=== PATIENT | male | born 1990 | race Caucasian/White ===

== ENCOUNTER 2018-12-04 16:39 | Emergency (ER) | payer OTHER ==
[~2018-12-04] VITALS: Ht 190.5 cm; Wt 113.4 kg
== END 2018-12-04 18:46 | disposition home or self-care (01) ==
LOC: ER 16:39
DX: S62.306A Unspecified fracture of fifth metacarpal bone, right hand, initial encounter for closed fracture (principal); Y04.0XXA Assault by unarmed brawl or fight, initial encounter; Y93.72 Activity, wrestling
CPT/HCPCS: 29125; 73130; 99283-25

== ENCOUNTER 2019-07-25 14:29 | Emergency (ER) | payer OTHER ==
[~2019-07-25] VITALS: Ht 190.5 cm; Wt 101.2 kg
[2019-07-25 16:42] LABS: BASOPHILS ABSOLUTE AUTO 0.03 K/mm3 (0.00-0.23); BASOPHILS PERCENT AUTO 0 % (0-2); EOSINOPHILS ABSOLUTE AUTO 0.09 K/mm3 (0.00-0.68); EOSINOPHILS PERCENT AUTO 1 % (0-6); Hematocrit 43.9 % (37.0-53.0); IMMATURE GRAN ABSOLUTE AUTO 0.01 K/mm3 (0.00-0.10); IMMATURE GRAN PERCENT AUTO 0 % (0-1); LYMPHOCYTES ABSOLUTE AUTO 2.06 K/mm3 (0.84-5.20); LYMPHOCYTES PERCENT AUTO 27 % (21-46); MONOCYTES ABSOLUTE AUTO 0.72 K/mm3 (0.16-1.47); MONOCYTES PERCENT AUTO 10 % (4-13); Mean Corpuscular HGB 30.7 pg (26.0-34.0); Mean Corpuscular HGB Conc 34.2 g/dL (31.5-36.5); Mean Corpuscular Volume 90 fL (80-100); NEUTROPHILS ABSOLUTE AUTO 4.63 K/mm3 (1.96-9.15); NEUTROPHILS PERCENT AUTO 62 % (41-73); Platelet Count 183 K/mm3 (150-400); RDW Coefficient Variation 11.7 % (11.7-14.2); RDW Standard Deviation 38.1 fL (35.1-46.3); Red Blood Cell Count 4.89 M/mm3 (4.30-5.90); White Blood Cell Count 7.54 K/mm3 (4.00-11.30)
[2019-07-25 16:59] LABS: Anion Gap 6 mmol/L (6-16); Blood Urea Nitrogen 8 mg/dL (8-24); Bun/Creatinine Ratio 9.7 (12.0-20.0); CO2, Blood 24 mmol/L (21-32); Calcium, Blood 8.7 mg/dL (8.5-10.1); Chloride, Blood 108 mmol/L (98-108); Creatinine, Blood 0.82 mg/dL (0.60-1.20); Glomerular Filtration Rate >60 (60-); Glucose, Blood 86 mg/dL (70-99); Potassium, Blood 4.1 mmol/L (3.5-5.5); Sodium, Blood 138 mmol/L (136-145)
[2019-07-25] MEDS ORDERED: CYCL10 PO (17:44)
[2019-07-25] MEDS ORDERED: IBUP600 PO (17:44)
== END 2019-07-25 18:04 | disposition home or self-care (01) ==
LOC: ER 14:29
PROVIDERS: Physician Assistant
DX: M54.2 Cervicalgia (principal); F17.200 Nicotine dependence, unspecified, uncomplicated
CPT/HCPCS: 36415; 72070; 72128; 80048; 85025; 85651; 86141; 99284-25

== ENCOUNTER 2019-11-05 13:12 | Emergency (ER) | payer OTHER ==
[~2019-11-05] VITALS: Ht 190.5 cm; Wt 99.8 kg
[~2019-11-05 13:12] MED LIST: CYCL10 PO; IBUP600 PO
[2019-11-05] MEDS ORDERED: Cleocin HCl300 MG PO (14:20)
[2019-11-05] MEDS ORDERED: IBUP800 PO (14:20)
== END 2019-11-05 15:12 | disposition home or self-care (01) ==
LOC: ER 13:12
DX: K04.7 Periapical abscess without sinus (principal)
CPT/HCPCS: 99282

== ENCOUNTER 2020-02-15 17:10 | Emergency (ER) | payer OTHER ==
[~2020-02-15] VITALS: Ht 190.5 cm; Wt 95.2 kg
[~2020-02-15 17:10] MED LIST changes: +Cleocin HCl300 MG PO; +IBUP800 PO
[2020-02-26] MEDS ORDERED: OMEP20ER PO (06:51)
== END 2020-02-15 18:59 | disposition home or self-care (01) ==
LOC: ER 17:10
DX: S92.412A Displaced fracture of proximal phalanx of left great toe, initial encounter for closed fracture (principal); X58.XXXA Exposure to other specified factors, initial encounter
CPT/HCPCS: 73630; 99283-25

== ENCOUNTER 2020-04-02 12:09 | Emergency (ER) | payer OTHER ==
[~2020-04-02] VITALS: Ht 190.5 cm; Wt 95.2 kg
[~2020-04-02 12:09] MED LIST changes: +OMEP20ER PO
[2020-04-02] MEDS ORDERED: IBU800 MG PO (12:44)
[2020-04-02] MEDS ORDERED: AMOCLA875 PO (12:44)
== END 2020-04-02 13:10 | disposition home or self-care (01) ==
LOC: ER 12:09
DX: K02.9 Dental caries, unspecified (principal); F17.210 Nicotine dependence, cigarettes, uncomplicated; Z87.19 Personal history of other diseases of the digestive system
CPT/HCPCS: 99282

== ENCOUNTER 2020-08-28 12:49 | Emergency (ER) | payer OTHER ==
[~2020-08-28] VITALS: Ht 182.9 cm; Wt 108.9 kg
[~2020-08-28 12:49] MED LIST changes: +AMOCLA875 PO; +IBU800 MG PO
[2020-08-28] MEDS ORDERED: Robaxin-750750 MG PO (13:18)
[2020-08-28] MEDS ORDERED: IBUP800 PO (13:18)
== END 2020-08-28 13:20 | disposition home or self-care (01) ==
LOC: ER 12:49
DX: M54.5 Low back pain (principal); F17.210 Nicotine dependence, cigarettes, uncomplicated
CPT/HCPCS: 99283

== ENCOUNTER 2021-03-22 12:57 | Emergency (ER) | payer OTHER ==
[~2021-03-22] VITALS: Ht 188 cm; Wt 95.2 kg
[~2021-03-22 12:57] MED LIST changes: +Robaxin-750750 MG PO
== END 2021-03-22 14:25 | disposition home or self-care (01) ==
LOC: ER 12:57
DX: B34.9 Viral infection, unspecified (principal); F17.210 Nicotine dependence, cigarettes, uncomplicated; Z20.822 Contact with and (suspected) exposure to COVID-19
CPT/HCPCS: 99283

== ENCOUNTER 2022-02-01 14:09 | Emergency (ER) | payer OTHER ==
[~2022-02-01] VITALS: Ht 182.9 cm; Wt 108.9 kg
[2022-02-01] MEDS ORDERED: MECL25 PO (19:19)
== END 2022-02-01 19:28 | disposition home or self-care (01) ==
LOC: ER 14:09
DX: R42 Dizziness and giddiness (principal); M54.2 Cervicalgia; R20.0 Anesthesia of skin; F17.210 Nicotine dependence, cigarettes, uncomplicated; Z79.899 Other long term (current) drug therapy
CPT/HCPCS: 70498; Q9967

== ENCOUNTER 2023-01-28 09:07 | Emergency (ER) | payer OTHER ==
[~2023-01-28] VITALS: Ht 177.8 cm; Wt 90.7 kg
[~2023-01-28 09:07] MED LIST changes: +MECL25 PO
[2023-01-28 09:42] VITALS: BP 144/101
[2023-01-28] MEDS ORDERED: Robaxin750 MG PO ×2 (10:52→10:54)
[2023-01-28] MEDS ORDERED: GABA300 PO (10:52)
[2023-01-28] MEDS ORDERED: IBUP800 PO ×2 (10:52→10:54)
== END 2023-01-28 11:01 | disposition home or self-care (01) ==
LOC: ER 09:07
DX: M54.12 Radiculopathy, cervical region (principal)
CPT/HCPCS: 99283

== ENCOUNTER 2023-02-01 14:46 | Emergency (ER) | payer OTHER ==
[~2023-02-01] VITALS: Ht 190.5 cm; Wt 113.4 kg
[~2023-02-01 14:46] MED LIST changes: +GABA300 PO; +Robaxin750 MG PO
[2023-02-01 16:01] LABS: BASOPHILS ABSOLUTE AUTO 0.03 K/mm3 (0.00-0.23); BASOPHILS PERCENT AUTO 0 % (0-2); EOSINOPHILS ABSOLUTE AUTO 0.08 K/mm3 (0.00-0.68); EOSINOPHILS PERCENT AUTO 1 % (0-6); Hematocrit 43.3 % (37.0-53.0); Hemoglobin 15.3 g/dL (13.5-17.5); IMMATURE GRAN ABSOLUTE AUTO 0.03 K/mm3 (0.00-0.10); IMMATURE GRAN PERCENT AUTO 0 % (0-1); LYMPHOCYTES ABSOLUTE AUTO 2.44 K/mm3 (0.84-5.20); LYMPHOCYTES PERCENT AUTO 28 % (21-46); MONOCYTES ABSOLUTE AUTO 0.65 K/mm3 (0.16-1.47); MONOCYTES PERCENT AUTO 7 % (4-13); Mean Corpuscular HGB 30.4 pg (26.0-34.0); Mean Corpuscular HGB Conc 35.3 g/dL (31.5-36.5); Mean Corpuscular Volume 86 fL (80-100); Mean Platelet Volume 10.8 fL (9.1-12.4); NEUTROPHILS ABSOLUTE AUTO 5.54 K/mm3 (1.96-9.15); NEUTROPHILS PERCENT AUTO 63 % (41-73); Platelet Count 207 K/mm3 (150-400); RDW Coefficient Variation 11.8 % (11.7-14.2); RDW Standard Deviation 36.9 fL (35.1-46.3); Red Blood Cell Count 5.04 M/mm3 (4.30-5.90); White Blood Cell Count 8.77 K/mm3 (4.00-11.30)
[2023-02-01 16:34] LABS: Albumin, Blood 4.1 g/dL (3.4-5.0); Albumin/Globulin Ratio 0.9 (0.8-1.8); Bilirubin, Total 0.3 mg/dL (0.1-1.0); Bun/Creatinine Ratio 18.8 (12.0-20.0); Calcium, Blood 9.4 mg/dL (8.5-10.1); Creatinine, Blood 0.9 mg/dL (0.60-1.20); Globulin, Blood 4.6 g/dL (2.2-4.0); Potassium, Blood 3.9 mmol/L (3.5-5.5); Total Protein, Blood 8.7 g/dL (6.4-8.2)
[2023-02-01 17:39] VITALS: BP 151/103
== END 2023-02-01 18:49 | disposition home or self-care (01) ==
LOC: ER 14:46
PROVIDERS: Student in an Organized Health Care Education/Training Program
DX: M54.12 Radiculopathy, cervical region (principal); F17.210 Nicotine dependence, cigarettes, uncomplicated
CPT/HCPCS: 80053; 85025; 99284

== ENCOUNTER 2023-03-08 17:21 | Emergency (ER) | payer OTHER ==
[~2023-03-08] VITALS: Ht 188 cm; Wt 117.0 kg
[2023-03-08 17:55] LABS: BASOPHILS ABSOLUTE AUTO 0.05 K/mm3 (0.00-0.23); BASOPHILS PERCENT AUTO 1 % (0-2); EOSINOPHILS ABSOLUTE AUTO 0.14 K/mm3 (0.00-0.68); EOSINOPHILS PERCENT AUTO 2 % (0-6); Hematocrit 43.8 % (37.0-53.0); Hemoglobin 15.6 g/dL (13.5-17.5); IMMATURE GRAN ABSOLUTE AUTO 0.03 K/mm3 (0.00-0.10); IMMATURE GRAN PERCENT AUTO 0 % (0-1); LYMPHOCYTES ABSOLUTE AUTO 3.06 K/mm3 (0.84-5.20); LYMPHOCYTES PERCENT AUTO 32 % (21-46); MONOCYTES ABSOLUTE AUTO 0.86 K/mm3 (0.16-1.47); MONOCYTES PERCENT AUTO 9 % (4-13); Mean Corpuscular HGB 30.5 pg (26.0-34.0); Mean Corpuscular HGB Conc 35.6 g/dL (31.5-36.5); Mean Corpuscular Volume 86 fL (80-100); NEUTROPHILS ABSOLUTE AUTO 5.44 K/mm3 (1.96-9.15); NEUTROPHILS PERCENT AUTO 57 % (41-73); Platelet Count 198 K/mm3 (150-400); RDW Coefficient Variation 11.5 % (11.7-14.2); RDW Standard Deviation 36.1 fL (35.1-46.3); Red Blood Cell Count 5.12 M/mm3 (4.30-5.90); White Blood Cell Count 9.58 K/mm3 (4.00-11.30)
[2023-03-08 18:14] LABS: C-REACTIVE PROTEIN, EXT RANGE 0.617 mg/dL (0.000-0.300)
[2023-03-08 18:23] LABS: Albumin, Blood 4.2 g/dL (3.4-5.0); Albumin/Globulin Ratio 0.9 (0.8-1.8); Bilirubin, Total 0.4 mg/dL (0.1-1.0); Bun/Creatinine Ratio 20.6 (12.0-20.0); Calcium, Blood 9.1 mg/dL (8.5-10.1); Creatinine, Blood 0.83 mg/dL (0.60-1.20); Globulin, Blood 4.7 g/dL (2.2-4.0); Total Protein, Blood 8.9 g/dL (6.4-8.2)
[2023-03-08] MEDS ORDERED: LEVOTHYROXINE100 M10 PO (19:25)
[2023-03-08] MEDS ORDERED: LOSA25 PO (19:26)
[2023-03-08] MEDS ORDERED: OMEP20ER PO (19:26)
[2023-03-09 01:27] LABS: Influenza A, PCR NEGATIVE (NEGATIVE); Influenza B, PCR NEGATIVE (NEGATIVE); Resp Syncytial Virus, PCR NEGATIVE (NEGATIVE); SARS-Cov-2 (COVID-19) PCR, MMC NEGATIVE (NEGATIVE)
[2023-03-09 08:30] VITALS: BP 119/77
== END 2023-03-09 14:15 | disposition short-term general hospital (02) ==
LOC: ER 17:21
PROVIDERS: Emergency Medicine; Physician Assistant
DX: G95.29 Other cord compression (principal); K21.9 Gastro-esophageal reflux disease without esophagitis; E03.9 Hypothyroidism, unspecified; F17.210 Nicotine dependence, cigarettes, uncomplicated; M48.02 Spinal stenosis, cervical region; Z79.899 Other long term (current) drug therapy
CPT/HCPCS: 0241U; 80053; 85025; 86140; 96374; 99285-25; J1885

== ENCOUNTER 2025-02-19 14:44 | Emergency (ER) | payer OTHER ==
[~2025-02-19] VITALS: Ht 172.7 cm; Wt 90.7 kg
[~2025-02-19 14:44] MED LIST changes: +DECARA1250 MC1 PO; +LEVOTHYROXINE100 M10 PO; +LOSA25 PO; +NEURONTIN300 MG PO
[2025-02-19 15:26] VITALS: BP 150/98
[2025-02-19 15:50] LABS: BASOPHILS ABSOLUTE AUTO 0.04 K/mm3 (0.00-0.23); BASOPHILS PERCENT AUTO 1 % (0-2); EOSINOPHILS ABSOLUTE AUTO 0.05 K/mm3 (0.00-0.68); EOSINOPHILS PERCENT AUTO 1 % (0-6); Hematocrit 42.1 % (37.0-53.0); Hemoglobin 14.4 g/dL (13.5-17.5); IMMATURE GRAN ABSOLUTE AUTO 0.01 K/mm3 (0.00-0.10); IMMATURE GRAN PERCENT AUTO 0 % (0-1); LYMPHOCYTES ABSOLUTE AUTO 2.40 K/mm3 (0.84-5.20); LYMPHOCYTES PERCENT AUTO 27 % (21-46); MONOCYTES ABSOLUTE AUTO 0.66 K/mm3 (0.16-1.47); MONOCYTES PERCENT AUTO 8 % (4-13); Mean Corpuscular HGB Conc 34.2 g/dL (31.5-36.5); Mean Corpuscular Volume 88 fL (80-100); NEUTROPHILS ABSOLUTE AUTO 5.62 K/mm3 (1.96-9.15); NEUTROPHILS PERCENT AUTO 64 % (41-73); NRBC ABSOLUTE 0.00 K/mm3 (0.00-0.02); NRBC Auto 0.0 /100 WBC (0.0-0.2); Platelet Count 177 K/mm3 (150-400); RDW Coefficient Variation 11.8 % (11.7-14.2); RDW Standard Deviation 38.0 fL (35.1-46.3)
[2025-02-19 16:25] LABS: Alanine Aminotransfer (ALT/SGP 47.0 U/L (12-78); Albumin, Blood 3.8 g/dL (3.4-5.0); Albumin/Globulin Ratio 0.8 (0.8-1.8); Anion Gap 6.0 mmol/L (3-11); Aspartate Aminotrans (AST/SGOT 24.0 U/L (12-37); Bilirubin, Total 0.5 mg/dL (0.1-1.0); Blood Urea Nitrogen 14.0 mg/dL (8-24); CO2, Blood 26.0 mmol/L (21-32); Calcium, Blood 8.5 mg/dL (8.5-10.1); Chloride, Blood 107.0 mmol/L (98-108); Creatinine, Blood 0.83 mg/dL (0.60-1.20); Globulin, Blood 4.5 g/dL (2.2-4.0); Glucose, Blood 80.0 mg/dL (70-99); Potassium, Blood 3.7 mmol/L (3.5-5.5); Sodium, Blood 135.0 mmol/L (136-145); Total Protein, Blood 8.3 g/dL (6.4-8.2)
== END 2025-02-19 18:05 | disposition home or self-care (01) ==
LOC: ER 14:44
PROVIDERS: Student in an Organized Health Care Education/Training Program
DX: M54.2 Cervicalgia (principal); G89.29 Other chronic pain; K21.9 Gastro-esophageal reflux disease without esophagitis; I10 Essential (primary) hypertension; F17.210 Nicotine dependence, cigarettes, uncomplicated; Z87.39 Personal history of other diseases of the musculoskeletal system and connective tissue; Z79.899 Other long term (current) drug therapy
CPT/HCPCS: 80053; 85025; 99283

== ENCOUNTER 2025-03-04 16:06 | Emergency (ER) | payer OTHER ==
[~2025-03-04] VITALS: Ht 190.5 cm; Wt 113.4 kg
[2025-03-04 21:15] VITALS: BP 107/78
== END 2025-03-04 21:33 | disposition home or self-care (01) ==
LOC: ER 16:06
DX: M48.02 Spinal stenosis, cervical region (principal); R53.1 Weakness; R20.2 Paresthesia of skin; K21.9 Gastro-esophageal reflux disease without esophagitis; I10 Essential (primary) hypertension; F17.210 Nicotine dependence, cigarettes, uncomplicated; Z79.899 Other long term (current) drug therapy
CPT/HCPCS: 99285-25